=== PATIENT | male | born 1980 | race Caucasian/White ===

== ENCOUNTER → 2020-09-21 | Outpatient (CLI) | payer BC | LOC: ULTRA 07:59 | PROVIDERS: ATTEND Nurse Practitioner | DX: E03.9 Hypothyroidism, unspecified (principal) ==

== ENCOUNTER 2020-09-24 19:53 | Emergency (ER) | payer BC ==
[~2020-09-24] VITALS: Ht 182.9 cm; Wt 96.2 kg
[2020-09-24] MEDS ORDERED: TRAZODONE HCL50 MG PO (20:28)
[2020-09-24] MEDS ORDERED: LISINOPRIL10 MG PO (20:29)
[2020-09-24] MEDS ORDERED: DRIZALMA SPRINK30 MG PO (20:29)
[2020-09-24] MEDS ORDERED: CARVEDILOL12.5 MG PO (20:30)
[2020-09-24] MEDS ORDERED: DEPAKOTE 250MG250 MG PO (20:30)
[2020-09-24] MEDS ORDERED: LIPITOR 20 MG T20 M1 PO (20:31)
[2020-09-24 21:19] LABS: AMP/METHAMP Negative (Negative); BARBITURATES Negative (Negative); BENZODIAZEPINES Negative (Negative); COCAINE Negative (Negative); METHADONE Negative (Negative); OPIATES Negative (Negative); PCP Negative (Negative)
[2020-09-24 21:21] LABS: HEMATOCRIT 45.2 % (42.0-52.0); HEMOGLOBIN 14.9 gm/dL (14.0-18.0); MCH 30.7 pg (26.0-34.0); MCHC 32.9 g/dL (28.0-37.0); MCV 93.4 fL (80.0-100.0); RBC 4.84 mil/uL (4.50-6.00); RDW 12.2 % (10.5-14.5); WBC 8.7 thou/uL (4.0-11.0)
[2020-09-24 21:28] LABS: ANION GAP 11 mmol/L (7-16); BUN 15 mg/dL (7-18); CALCIUM 9.1 mg/dL (8.5-10.1); CHLORIDE 103 mmol/L (98-107); CO2 27 mmol/L (21-32); GLUCOSE 104 mg/dL (74-106); POTASSIUM 4.2 mmol/L (3.5-5.1); SODIUM 141 mmol/L (136-145)
[2020-09-24 21:34] LABS: ALBUMIN 4.3 g/dL (3.4-5.0); LIPASE 113 U/L (73-393); SGOT 19 U/L (15-37); SGPT 47 U/L (30-65); TOTAL BILIRUBIN 0.5 mg/dL (0.2-1.0); TOTAL PROTEIN 7.2 g/dL (6.4-8.2)
[2020-09-24 21:37] LABS: SALICYLATE < 2.8 mg/dL (2.8-20.0)
[2020-09-24 23:49] VITALS: BP 156/104
[2020-09-25 00:06] LABS: TROPONIN-I <0.06 ng/mL (<0.06)
--- NOTE | 2020-09-25 09:50 | EKG ---
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 : 1980 Requested By: Carlos Diaz Order Number: [id number] MD: Joseph Blanton Measurements Intervals Keyser Rate: 64 P: 34 WI: 160 QRS: 42 QRSD: 114 T: -7 QT: 414 QTc: 427 Interpretive Statements Sinus rhythm Borderline intraventricular conduction delay Borderline T abnormalities, inferior leads Compared to ECG 09/24/2020 20:16:48 No significant changes Electronically Signed On 09-25-2020 9:50:28 [facility] by Joseph Blanton [email or web address] <ELECTRONICALLY SIGNED> By: Joseph Blanton MD, [facility] 09/25/20 0950 16 16 Joseph Blanton MD, FACC /EPI
== END 2020-09-25 00:45 | disposition home or self-care (01) ==
LOC: ER 19:53
PROVIDERS: Emergency Medicine
DX: R45.851 Suicidal ideations (principal); R53.83 Other fatigue; R19.7 Diarrhea, unspecified; Z88.2 Allergy status to sulfonamides; Z79.899 Other long term (current) drug therapy; Z20.828 Contact with and (suspected) exposure to other viral communicable diseases

== ENCOUNTER → 2020-09-26 | Outpatient (CLI) | payer BC ==
[~2020-09-26] MED LIST: CARVEDILOL12.5 MG PO; DEPAKOTE 250MG250 MG PO; DRIZALMA SPRINK30 MG PO; LIPITOR 20 MG T20 M1 PO; LISINOPRIL10 MG PO; TRAZODONE HCL50 MG PO
== END ==
LOC: CAT 15:07
PROVIDERS: ATTEND Family Medicine
DX: R51.9 Headache, unspecified (principal); G89.29 Other chronic pain